=== PATIENT | male | born 1980 | race African-American/Black ===

== ENCOUNTER 2017-06-18 20:11 | Emergency (ER) | payer SELFPAY ==
[2017-06-18 20:17] VITALS: BP 123/80; BMI 28.2
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
== END 2017-06-18 22:28 | disposition home or self-care (01) ==
LOC: ER 20:11
DX: S80.02XA Contusion of left knee, initial encounter (principal); M25.562 Pain in left knee; M25.552 Pain in left hip; V10.2XXA Unspecified pedal cyclist injured in collision with pedestrian or animal in nontraffic accident, initial encounter
CPT/HCPCS: 73501; 73552; 73564; 99282